=== PATIENT | female | born 1995 | race Caucasian/White ===

== ENCOUNTER → 2016-05-20 | Day surgery (SDC) | payer OTHER ==
[2016-05-14 13:37] VITALS: Ht 167.6 cm; Wt 59.1 kg
[2016-05-18 16:52] LABS: PREG INTERNAL NEGATIVE QC NEG CLEAR BACKGROUND; PREG INTERNAL POSITIVE QC POS CONTROL LINE
[~2016-05-20] VITALS: Ht 167.6 cm; Wt 59.1 kg
[~2016-05-20] MED LIST: ATROPINE SULFATE 0.1 MG/ML 5ML SYR IV PRN; BCPILLS PO; BUPIVACAINE 0.5 % 5 MG/1 ML MPF 30ML VIAL ONE; CEFAZOLIN 1000MG/55 ML D5W 55 ML IV SCH; DEXAMETHASONE SOD INJ 4 MG/ML VIAL ONE; EpHEDrine SULFATE INJ 50 MG/ML AMP IV PRN; FENTANYL CITRATE INJ 50 MCG/1 ML 2 ML VIAL IV PRN; FENTANYL CITRATE INJ 50 MCG/1 ML 2 ML VIAL ONE; GELATIN SPONGE SZ 100 ONE; LACTATED RINGER'S 1000ML IV SCH; LIDOCAINE HCL 2% 2 ML VIAL (20MG/ML) ONE; MECL1TAB42 PO; MIDAZOLAM HCL 1 MG/ML 2ML VIAL ONE; NALOXONE HCL 0.4 MG/1 ML VIAL/CARP IV PRN; ONDA4TAB46 PO; ONDANSETRON INJ 2 MG/ML 2 ML VIAL IV PRN; ONDANSETRON INJ 2 MG/ML 2 ML VIAL ONE; PROMETHAZINE HCL INJ 12.5 MG in SODIUM CHLORIDE 0.9% 50ML 50 ML IV PRN; PROPOFOL IV EMULSION 10 MG/ML 20 ML VIAL IV ONE; SILVER SULFADIAZINE 1% CR 50 GM JAR EXT ONE; SODIUM CHLORIDE 0.9% 1000ML 1,000 ML IV SCH
--- NOTE | 2016-05-20 07:40 | HISTORY & PHYSICAL EXAMINATION ---
DATE OF ADMISSION: 05/20/2016 HISTORY OF PRESENT ILLNESS: 21-year-old female presents for preop surgery and physical requesting lesion surgery. Complaining skin over both feet are painful, lesions gradually worsening over time. The patient indicates lesion existed for unknown duration. Lesion is unchanged with current treatment. She reports warts are painful. She indicates acid therapy does not change the treatment, cryotherapy does not change, debridement does not change. Past treatment and tests for this condition include acid, cryotherapy and debridement. The patient notes that her pain is a 7 on a 10-point scale. Due to the nature and severity of the discomfort, she is requesting surgical intervention. PAST SURGICAL HISTORY: No previous surgeries. PAST MEDICAL HISTORY: Vertigo. MEDICATIONS: Minocycline ALLERGIES: BACTRIM RESULTING IN ITCHY, GRASS, TREES Dust, MOLD, CATS. FAMILY HISTORY: Alzheimer's disease, back problems. SOCIAL HISTORY: The patient admits to alcohol use, drinking described as social. REVIEW OF SYSTEMS: Unremarkable except chief complaint. PHYSICAL EXAMINATION: VITAL SIGNS: Blood pressure 110/74, temperature 97.5, height 5' 6", weight 129 pounds, body mass index 21. CONSTITUTIONAL: The patient appears well-developed and nourished with good attention to body grooming and habitus. HEAD AND FACE: Head is normocephalic and atraumatic without any gross head, face, or neck masses. EYES: Conjunctival and pupillary reaction to light and accommodation are normal. EARS, NOSE, MOUTH, AND THROAT: Unremarkable. NECK: Neck is supple. Trachea is midline without adenopathy or crepitance palpable. CARDIOVASCULAR: Normal S1, S2 without murmur, gallops, rubs noted. RESPIRATORY: Chest is symmetric. GASTROINTESTINAL: Abdominal organs, bladder, and kidneys show center no abnormalities, masses, tenderness, or rigidity. LYMPHATIC: No popliteal, inguinal, or supraclavicular or lymphadenopathy noted. VASCULAR EXTREMITY: DP palpable. PT palpable. DERMATOLOGIC: Cutaneous vascular lesions observed. NEUROLOGICAL: Touch, pin, vibratory pinprick sensations are normal. Deep tendon reflexes normal. MUSCULOSKELETAL: Muscle tone is normal. Muscle strength is normal. PIPJ contracture noted 2 through 5 bilaterally. IMPRESSION: 1. Hammertoes 2 through 5 bilaterally. 2. Benign neoplasm of skin. PLAN: Informed the patient the etiologies of the lesions and offered the following treatment options: 1. Debridement and application of acid. 2. Surgical excision. 3. Cryotherapy, CO2 laser vaporization. 4. Bleomycin. Reviewed procedures and complications of each treatment at length. All questions were answered. The patient is aware that no treatment and us is 100% effective and success rate for all treatments are relatively similar. The patient elects to proceed with CO2 laser vaporization and partial excision of lesion. This will be performed CO2 laser vaporization approximately 26 lesions bilaterally local with IV sedation as an outpatient at surgery center. Procedure risks, complications were fully reviewed with the patient. Consent form and foot diagram and illustration. Went over the complications discussed in detail including pain, infection, swelling that may or may not be excessive, pins and needles feeling, numbness, metatarsalgia, excessive bleeding, delay or nonhealing of skin and large scar, failure of the procedure, recurrence or worsening condition which may or may not require further surgery, adverse reaction to anesthesia, allergic reaction to suture or other implant material, loss of toe, foot, or leg; transfer lesion or callus, peripheral neurovascular complications such as phlebitis, damage to nerves or vascular structures, severe or chronic pain, chronic nerve pain or damage, and general medical complications. The patient will be required to wear a surgery shoe for a minimum of 3-7 days and not return to dress shoe for 3 weeks depending on the postop edema, need for accommodative padding. The patient is aware this is an elective type procedure and I recommend a second opinion. The patient stated she understood, consent form was signed with a copy of the foot diagram and illustration given to the patient. Verbal and written postop instructions were given. The patient will return to the office for postop check or sooner if medically necessary. Instructed to keep dressing clean, dry and intact until seen at the office. At the time of the preoperative appointment prescriptions for acetaminophen, hydrocortisone, Keflex and Silvadene were dispensed. NAMITA
--- NOTE | 2016-05-20 08:43 | OPERATIVE REPORT ---
DATE OF OPERATION: 05/20/2016 SURGEON: Dr. Elizabeth. PREOPERATIVE DIAGNOSIS: Cutaneous vascular lesions, bilateral feet. POSTOPERATIVE DIAGNOSIS: Same. PROCEDURE: CO2 laser bilateral feet, lesion excision to the depth of 1.2 cm, 4 from the left and 1 from the right, total of 5. HEMOSTASIS: None. PATHOLOGY: Specimen sent. ESTIMATED BLOOD LOSS: Minimal. MEDICATIONS: Gelfoam. INJECTABLES: 30 mL 0.5% Marcaine plain. CONDITION: The patient tolerated the procedure and anesthesia well without complications, transferred to the recovery room with vital signs stable and neurovascular status intact. I attest to the content of the Intraoperative Record and any orders documented therein. Any exceptio ns are noted below.
[2016-05-20 08:45] VITALS: TEMP 36.3
--- NOTE | 2016-05-20 08:51 | Anesthesia Progress Nt - [facility] ---
Anesthesia Post Op Note Date & Time May 20, 2016 at 08:52 Vital Signs Pain Intensity: 0 Vital Signs Past 12 Hours Date Time Temp Pulse Resp B/P Pulse Ox O2 Delivery O2 Flow Rate FiO2 05/20/16 08:45 36.3 61 18 120/84 100 Room Air 05/20/16 08:30 70 14 05/20/16 08:30 71 14 118/84 99 05/20/16 08:29 36.8 67 12 118/84 99 Room Air 05/20/16 08:25 83 13 05/20/16 08:25 87 13 122/76 99 05/20/16 08:21 112/75 05/20/16 08:20 58 16 05/20/16 08:20 60 16 100 05/20/16 08:16 130/79 05/20/16 08:15 59 13 100 05/20/16 08:15 59 13 05/20/16 08:11 121/78 05/20/16 08:10 36.4 64 16 121/78 100 Diffusion Mask 6 05/20/16 06:54 36.8 71 16 116/75 96 Room Air Notes Mental Status: alert / awake / arousable, participated in evaluation Pt Amnestic to Procedure: Yes Nausea / Vomiting: adequately controlled Pain: adequately controlled Airway Patency, RR, SpO2: stable & adequate BP & HR: stable & adequate Hydration State: stable & adequate Anesthetic Complications: no major complications apparent
--- NOTE | 2016-05-20 09:18 | Discharge Instructions-SurgCtr ---
Discharge Instructions Date of Service May 20, 2016. Visit Reason for Visit: Bilateral Feet Painful Lesions Metatarsalalgia (RED dots REqUIRED VITALE) Discharge Discharge Diagnosis / Problem: Patient is to follow up at our office in one week for dressing change Discharge Goals Goal(s): Improve function Activity Recommendations Activity Limitations: as noted below Anesthesia . Post Anesthesia Instructions: If you have had General Anesthesia or IV Sedation: * Do not drive today. * Resume driving when surgeon permits. * Do not make important decisions or sign legal documents today. * Call surgeon for: 1. Temperature elevations greater than 101 degrees F. 2. Uncontrollable pain. 3. Excessive bleeding. 4. Persistent nausea and vomiting. 5. Medication intolerance (nausea, vomiting or rash). * For nausea and vomiting use only clear liquids such as: tea, soda, bouillon until nausea subsides, then gradually increase diet as tolerated. * If you have any concerns or questions, call your surgeon's office. If physician is unavailable and it is an emergency, call 911 or go to the nearest emergency room. . Diet Recommendations Home Diet: resume previous diet Procedures Procedures Performed: Bilateral Lower Extremities CO2 Laser Vaporization And Partial Lesion Excision Pending Studies Studies pending at discharge: yes List of pending studies: Pathology Report Medical Emergencies . Who to Call and When: Medical Emergencies: If at any time you feel your situation is an emergency, please call 911 immediately. . Non-Emergent Contact Non-Emergency issues call your: Primary Care Provider . . "Provider Documentation" section prepared by Yulia Luna.
[2016-05-20 09:26] VITALS: BP 117/78; PULSE 62; O2SAT 100
== END | disposition home or self-care (01) ==
LOC: X.SURG 06:45
PROVIDERS: ATTEND Podiatrist Foot & Ankle Surgery
DX: B07.9 Viral wart, unspecified (principal); M77.41 Metatarsalgia, right foot; M77.42 Metatarsalgia, left foot; M20.40 Other hammer toe(s) (acquired), unspecified foot; Z98.890 Other specified postprocedural states; Z88.1 Allergy status to other antibiotic agents